=== PATIENT | female | born 1965 | race Caucasian/White ===

== ENCOUNTER → 2017-04-26 | Outpatient (CLI) | payer BC ==
[2017-04-26 11:22] LABS: HEMATOCRIT 40.2 % (37.0-47.0); MEAN CELL VOLUME 89 fl (78-100); MEAN CORPUSCULAR HEMOGLOBIN 29 pg (27-31); MEAN CORPUSCULAR HGB CONC 32 g/dL (33-37); MEAN PLATELET VOLUME 9.1 fl (7.4-10.4); PLATELET COUNT 222 K/mm3 (130-400); RED BLOOD COUNT 4.51 M/mm3 (4.10-5.30); RED CELL DISTRIBUTION WIDTH 13.5 % (11.5-14.5); WHITE BLOOD COUNT 3.3 K/mm3 (4.8-10.8)
[2017-04-26 11:49] LABS: LYMPHOCYTE 44 % (20-51); MONOCYTE 15 % (3-10); NEUTROPHILS 36 % (42-75)
== END ==
LOC: LAB 10:59
PROVIDERS: Family Medicine
DX: B34.9 Viral infection, unspecified (principal); R53.83 Other fatigue; Z88.2 Allergy status to sulfonamides

== ENCOUNTER → 2017-05-03 | Outpatient (CLI) | payer BC ==
[2017-05-03 11:09] LABS: HEMOGLOBIN 12.8 g/dL (12.5-16.0); MEAN CELL VOLUME 88 fl (78-100); MEAN CORPUSCULAR HEMOGLOBIN 29 pg (27-31); MEAN CORPUSCULAR HGB CONC 33 g/dL (33-37); PLATELET COUNT 323 K/mm3 (130-400); RED BLOOD COUNT 4.43 M/mm3 (4.10-5.30); RED CELL DISTRIBUTION WIDTH 13.1 % (11.5-14.5); WHITE BLOOD COUNT 6.3 K/mm3 (4.8-10.8)
[2017-05-03 12:32] LABS: LYMPHOCYTE 31 % (20-51); MONOCYTE 8 % (3-10); NEUTROPHILS 58 % (42-75)
== END ==
LOC: LAB 10:45
PROVIDERS: Family Medicine
DX: B34.9 Viral infection, unspecified (principal); R53.83 Other fatigue; S39.012A Strain of muscle, fascia and tendon of lower back, initial encounter; Z88.2 Allergy status to sulfonamides

== ENCOUNTER → 2017-05-31 | Outpatient (CLI) | payer BC | LOC: RAD 11:03 | DX: M48.07 Spinal stenosis, lumbosacral region (principal); M47.897 Other spondylosis, lumbosacral region; M25.551 Pain in right hip; Z88.2 Allergy status to sulfonamides ==

== ENCOUNTER 2017-08-09 09:00 | Outpatient (RCR) | payer BC | END 2017-09-01 | disposition home or self-care (01) | LOC: PT | DX: M54.9 Dorsalgia, unspecified (principal); M25.551 Pain in right hip; X50.0XXD Overexertion from strenuous movement or load, subsequent encounter ==

== ENCOUNTER → 2018-02-03 | Outpatient (CLI) | payer BC | LOC: RAD 09:59 | DX: M25.512 Pain in left shoulder (principal); M25.612 Stiffness of left shoulder, not elsewhere classified ==

== ENCOUNTER 2018-03-24 08:30 | Outpatient (RCR) | payer BC | END 2018-04-04 | disposition home or self-care (01) | LOC: PT | DX: S46.812D Strain of other muscles, fascia and tendons at shoulder and upper arm level, left arm, subsequent encounter (principal); Y93.H2 Activity, gardening and landscaping ==

== ENCOUNTER → 2019-11-07 | Outpatient (CLI) | payer BC ==
[2019-11-06 12:27] VITALS: BP 126/66
[~2019-11-07] MED LIST: NORCO 325 MG-51 TA1 PO; ZOFRAN4 M2 PO; ZOLOFT 50MG50 MG PO
== END ==
LOC: RAD 07:25
DX: K80.42 Calculus of bile duct with acute cholecystitis without obstruction (principal)

== ENCOUNTER → 2019-11-10 | Outpatient (CLI) | payer BC ==
[2019-11-06 12:27] VITALS: BP 126/66
[2019-11-10 08:25] LABS: ALBUMIN 4.2 g/dL (3.5-5.0)
[2019-11-10 08:26] LABS: CALCIUM 9.3 mg/dL (8.3-10.5)
[2019-11-10 08:27] LABS: TOTAL PROTEIN 7.5 g/dL (6.4-8.3)
[2019-11-10 08:29] LABS: TOTAL BILIRUBIN 0.7 mg/dL (0.2-1.2)
== END ==
LOC: LAB 08:04
PROVIDERS: Family Medicine
DX: F41.9 Anxiety disorder, unspecified (principal); R10.13 Epigastric pain; R42 Dizziness and giddiness

== ENCOUNTER → 2019-11-23 | Outpatient (CLI) | payer BC ==
[2019-11-06 12:27] VITALS: BP 126/66
[2019-11-23 09:53] LABS: ALBUMIN 4.1 g/dL (3.5-5.0)
[2019-11-23 09:56] LABS: TOTAL PROTEIN 7.1 g/dL (6.4-8.3)
[2019-11-23 09:57] LABS: TOTAL BILIRUBIN 0.5 mg/dL (0.2-1.2)
[2019-11-23 10:01] LABS: DIRECT BILIRUBIN 0.2 mg/dL (0.0-0.5)
== END ==
LOC: LAB 09:32
PROVIDERS: Family Medicine
DX: K75.89 Other specified inflammatory liver diseases (principal)

== ENCOUNTER → 2020-01-23 | Outpatient (CLI) | payer BC ==
[2019-11-06 12:27] VITALS: BP 126/66
[2020-01-23 09:45] LABS: TOTAL PROTEIN 7.3 g/dL (6.4-8.3)
[2020-01-23 09:46] LABS: TOTAL BILIRUBIN 0.5 mg/dL (0.2-1.2)
[2020-01-23 09:50] LABS: DIRECT BILIRUBIN 0.2 mg/dL (0.0-0.5)
== END ==
LOC: LAB 09:10
DX: R79.89 Other specified abnormal findings of blood chemistry (principal)

== ENCOUNTER → 2021-07-17 | Outpatient (CLI) | payer BC | LOC: RAD 11:38 | DX: M79.671 Pain in right foot (principal) ==

== ENCOUNTER → 2024-01-14 | Outpatient (CLI) | payer BC | LOC: LAB 09:01 | DX: Z13.220 Encounter for screening for lipoid disorders (principal) ==